=== PATIENT | female | born 1985 | race Two or more races ===

== ENCOUNTER 2016-11-10 15:24 | Inpatient (IN) | payer OTHER ==
[2016-11-10] MEDS ORDERED: HYDROmorphONE/DILAUDID 1 MG/ML SYR IVP ONE ×2 (15:28→17:00)
[2016-11-10] MEDS ORDERED: NS 1,000 ML IV ONE (15:28)
--- NOTE | 2016-11-10 15:33 | EDPHY ---
H & P HPI/ROS: CHIEF COMPLAINT: The fall down the trail HISTORY OF PRESENT ILLNESS: The patient is a 31-year-old female with no significant past medical history. She was hiking today slipped and fell backwards down a steep 10 foot incline. She has pain to her left clavicle and side of her head. She complains of mild headache. She denies shortness of breath. She denies abdominal pain. She denies loss of consciousness. She denies pelvic pain. She has been able to ambulate. REVIEW OF SYSTEMS: Constitutional: denies: chills, fever, recent illness, recent injury EENTM: denies: blurred vision, double vision, nose congestion Respiratory: denies: cough, shortness of breath Cardiac: denies: chest pain, irregular heart rate, lightheadedness, palpitations Gastrointestinal/Abdominal: denies: abdominal pain, diarrhea, nausea, vomiting, blood streaked stools Genitourinary: denies: dysuria, frequency, hematuria, pain Musculoskeletal: See HPI Skin: denies: lesions, rash, jaundice, bruising Neurological: denies: headache, numbness, paresthesia, tingling, dizziness, weakness Hematologic/Lymphatic: denies: blood clots, easy bleeding, easy bruising Immunologic/allergic: denies: HIV/AIDS, transplant Vital signs reviewed normal Patient is alert not anxious or lethargic and in no distress c-collar in place, cervical collar cleared by me on arrival HEAD: Abrasions to left side of face no raccoon eyes, no Freitas sign. NECK: is nontender and has painless range of motion, trachea is midline, NEXUS criteria negative (no midline tenderness no distracting injury no altered mental status no recent alcohol and no focal neuro deficits EYES: pupils equal round reactive to light and accommodating, extraocular muscles are intact no palsy or entrapment, no subconjunctival hemorrhage ENT: Normal external inspection, airway intact, no dental or oral injuries, no clotted nasal blood, no septal hematoma, no hemotympanum CARDIOVASCULAR: heart sounds normal, not tachycardic or bradycardic, Chest is non-tender no rib tenderness no palpable fracture, no crepitus, no subcutaneous emphysema RESPIRATORY: no splinting, no paradoxical movements, gross sounds normal, no wheezes no rales no rhonchi, no respiratory distress ABDOMEN: Abdomen is nontender in all 4 quadrants no guarding no rebound, no distention, no hernias, no masses or bruits. GENITAL/RECTAL: Normal external inspection, no vaginal bleeding. Stable pelvis NEUROLOGIC/PSYCH: Oriented x3, cranial nerves normal as assessed, face symmetrical, sensation normal, motor grossly normal, not perseverating, cranial nerves II through XII intact normal reflexes Rupinder Coma score: 15 SKIN: Abrasions of face and left shoulder no ecchymosis, no lacerations, nondiaphoretic. BACK: No CVA tenderness, no vertebral point tenderness, no muscle spasm normal range of motion EXTREMITIES: Left clavicular and mild right clavicular pain pelvis stable, nontender able to bear weight, no pulse deficit, normal range of motion, normal color and temperature Source: Patient Exam Limitations: No limitations - Medical/Surgical History Hx Asthma: No Hx Chronic Respiratory Disease: No Hx Diabetes: No Hx Cardiac Disease: No Hx Renal Disease: No Hx Cirrhosis: No Hx Alcoholism: No - Family History Significant Family History: No pertinent family hx - Social History Smoking Status: Never smoked Alcohol Use: Sober Drug Use: None Constitutional: Initial Vital Signs Temperature (C) 36.9 C 11/10/16 15:36 Heart Rate 82 11/10/16 15:36 Respiratory Rate 18 11/10/16 15:36 Blood Pressure 136/74 H 11/10/16 15:36 O2 Sat (%) 99 11/10/16 15:36 O2 Delivery Mode Room Air Allergies/Adverse Reactions: No Known Allergies Allergy (Unverified 11/10/16 15:35) Home Medications: Medication Instructions Recorded Desvenlafaxine Succinate [Pristiq 100 mg PO DAILY 11/10/16 ER] Levothyroxine [Synthroid 200 mcg 200 mcg PO DAILY06 11/10/16 (*)] Qlaira (Estradiol Valerate & 1 tab PO DAILY 11/10/16 Dienogest) 26/2 traZODone [traZODONE 50MG (*)] 25 mg PO HS 11/10/16 Medical Decision Making - Diagnostics Imaging Results: Imaging Impressions Cervical Spine CT 11/10/16 15:29 Impression: Mildly comminuted nondisplaced fracture of the right occipital condyle. It is in the region where the transverse ligament inserts and therefore could be unstable. CT Head (Without Contrast) Indication: Trauma. Fall. Technique: 5 mm images were obtained of the head without contrast. Multiplanar reformation was performed. Dose reduction techniques were utilized. Findings: No evidence for intracranial mass, hemorrhage, or infarct. The ventricles, sulci, and cisterns are within normal limits for the patient's age. No evidence for an extraaxial fluid collection. No evidence for skull fracture. Paranasal sinuses are clear. Soft tissue swelling left frontal scalp. Impression: Soft tissue swelling left frontal scalp. No evidence for skull fracture. No evidence for intracranial hemorrhage. Results discussed with Dr. Alex Segura at 1630 hours 10 November 2016. Chest X-Ray 11/10/16 15:29 Impression: 1. Displaced left clavicular fracture. 2. No pneumothorax. Clavicle X-Ray 11/10/16 15:29 Impression: Displaced oblique slightly comminuted left mid clavicular fracture. No apposition. Head CT 11/10/16 15:29 Impression: Mildly comminuted nondisplaced fracture of the right occipital condyle. It is in the region where the transverse ligament inserts and therefore could be unstable. CT Head (Without Contrast) Indication: Trauma. Fall. Technique: 5 mm images were obtained of the head without contrast. Multiplanar reformation was performed. Dose reduction techniques were utilized. Findings: No evidence for intracranial mass, hemorrhage, or infarct. The ventricles, sulci, and cisterns are within normal limits for the patient's age. No evidence for an extraaxial fluid collection. No evidence for skull fracture. Paranasal sinuses are clear. Soft tissue swelling left frontal scalp. Impression: Soft tissue swelling left frontal scalp. No evidence for skull fracture. No evidence for intracranial hemorrhage. Results discussed with Dr. Alex Segura at 1630 hours 10 November 2016. Imaging: Discussed imaging studies w/ dental office coordinator Radiologist Procedures: Procedure: Trauma ultrasound. Limited echocardiogram for pericardial effusion. Limited bedside ultrasound was performed and interpreted by myself for the indication of: thoracoabdominal trauma utilizing the thoracoabdominal emergency ultrasound protocol. Limited transthoracic echocardiogram: The pericardium was visualized and found to be negative for pericardial fluid. The study was negative for pericardial effusion. Limited abdominal ultrasound for blunt abdominal trauma. 1) The right upper quadrant was visualized and was found to be negative for intraperitoneal fluid. 2) The left upper quadrant was visualized and found to be negative for intraperitoneal fluid. The study was felt to be negative for free intraperitoneal fluid. Limited pelvic ultrasound was conducted for abdominal trauma. The bladder was visualized and did not reveal an anechoic area outside of the adjacent urinary bladder. The study was felt to be negative for free intraperitoneal fluid. ED Course/Re-evaluation: Patient came in as a limited trauma activation but was immediately down graded because of her stable vital signs, normal mental status and no obvious series injury. 4:50 p.m. the patient has bilateral clavicle fractures. I examined her skin more closely. It is not an open fracture. She has abrasions but no penetration or laceration. I placed her back in a cervical collar because of her right occipital condyle fracture. I will discuss with Neurosurgery. 5:10 p.m. I discussed the case with Dr. Oviedo who is on-call for Neurosurgery. She recommends a bryon or somi brace from [facility] including a forehead strep. 5:15 p.m. I discussed the case with Dr. Roxanne Irvin. He states that the left clavicle likely will need surgery but he would do it after the swelling has gone down a week and likely after she is out of her neck brace after several weeks. Until that time she will wear bilateral slings. She may remove the right sling for activities of daily living. 5:15 p.m. I discussed the case with is doctor Felipe Brennan is. We will attempt to discharge from the ER if the patient can tolerate the pain and functionally take care of herself. 6:[address] Brenna Oviedo is here evaluating the patient. She will need to be in the brace for 8-12 weeks. 7:[address] Brenna Oviedo recommends admitting the patient getting MRI. Discussed the case with Dr. Brennan for admission. Differential Diagnosis: Partial list of the Differential diagnosis considered include but were not limited to; head injury, neck injury, clavicle fracture, pneumothorax and although unlikely based on the history and physical exam, I also considered abdominal injury, pelvic injury, extremity injury. - Data Points Laboratory Results: Laboratory Results 11/10/16 17:10 11/10/16 17:10 11/10/16 11/10/16 17:10 17:10 WBC 10.88 10^3/uL H 10^3/uL (3.80-9.50) RBC 4.30 10^6/uL 10^6/uL (4.18-5.33) Hgb 12.5 g/dL L g/dL (12.6-16.3) Hct 37.2 % L % (38.0-47.0) MCV 86.5 fL fL (81.5-99.8) MCH 29.1 pg pg (27.9-34.1) MCHC 33.6 g/dL g/dL (32.4-36.7) RDW 12.7 % % (11.5-15.2) Plt Count 238 10^3/uL 10^3/uL (150-400) MPV 10.7 fL fL (8.7-11.7) Neut % (Auto) 83.9 % H % (39.3-74.2) Lymph % (Auto) 10.4 % L % (15.0-45.0) [place] % (Auto) 4.8 % % (4.5-13.0) Eos % (Auto) 0.0 % L % (0.6-7.6) Baso % (Auto) 0.3 % % (0.3-1.7) Nucleat RBC Rel Count 0.0 % % (0.0-0.2) Absolute Neuts (auto) 9.14 10^3/uL H 10^3/uL (1.70-6.50) Absolute Lymphs (auto) 1.13 10^3/uL 10^3/uL (1.00-3.00) Absolute Monos (auto) 0.52 10^3/uL 10^3/uL (0.30-0.80) Absolute Eos (auto) 0.00 10^3/uL L 10^3/uL (0.03-0.40) Absolute Basos (auto) 0.03 10^3/uL 10^3/uL (0.02-0.10) Absolute Nucleated RBC 0.00 10^3/uL 10^3/uL (0-0.01) Immature Gran % 0.6 % % (0.0-1.1) Immature Gran # 0.06 10^3/uL 10^3/uL (0.00-0.10) Sodium 139 mEq/L mEq/L (134-144) Potassium 4.5 mEq/L mEq/L (3.5-5.2) Chloride 111 mEq/L H mEq/L (97-110) Carbon Dioxide 18 mEq/l L mEq/l (22-31) Anion Gap 10 mEq/L mEq/L (8-16) BUN 14 mg/dL mg/dL (7-23) Creatinine 0.6 mg/dL mg/dL (0.6-1.0) Estimated GFR > 60 Glucose 91 mg/dL mg/dL (70-100) Calcium 9.3 mg/dL mg/dL (8.5-10.4) Medications Given: Discontinued Medications Hydromorphone HCl (Dilaudid) 0.5 mg IVP EDNOW ONE Stop: 11/10/16 15:29 Last Admin: 11/10/16 15:46 Dose: 0.5 mg Hydromorphone HCl (Dilaudid) 0.5 mg IVP EDNOW ONE Stop: 11/10/16 17:01 Last Admin: 11/10/16 17:03 Dose: 0.5 mg Sodium Chloride (Ns) 1,000 mls @ 0 mls/hr IV ONCE ONE; Wide Open PRN Reason: Protocol Stop: 11/10/16 15:29 Last Admin: 11/10/16 15:47 Dose: 1,000 mls Oxycodone/Acetaminophen (Percocet 5/325) 1 tab PO EDNOW ONE Stop: 11/10/16 18:45 Last Admin: 11/10/16 19:07 Dose: 1 tab Departure - Departure Disposition: [facility] Acute Clinical Impression: Fracture of clavicle, left, closed Qualifiers: Encounter type: initial encounter Clavicle location: shaft Fracture alignment: displaced Qualified Code(s): S42.022A - Displaced fracture of shaft of left clavicle, initial encounter for closed fracture Right clavicle fracture Qualifiers: Encounter type: initial encounter Clavicle location: shaft Fracture type: closed Fracture alignment: displaced Qualified Code(s): S42.021A - Displaced fracture of shaft of right clavicle, initial encounter for closed fracture Unspecified occipital condyle fracture, initial encounter for closed fracture Qualifiers: Encounter type: initial encounter Laterality: right Qualified Code(s): S02.113A - Unspecified occipital condyle fracture, initial encounter for closed fracture Condition: Fair
[2016-11-10] MEDS ORDERED: HYDROmorphONE/DILAUDID 1 MG/ML SYR ONE (16:59)
[2016-11-10 17:41] LABS: % IMMATURE GRANULYOCYTES 0.6 % (0.0-1.1); ABSOLUTE IMMATURE GRANULOCYTES 0.06 10^3/uL (0.00-0.10); ADD DIFF? NO; ADD MORPH? NO; ADD SCAN? NO; ATYPICAL LYMPHOCYTE FLAG 10 (0-99); FRAGMENT RBC FLAG 0 (0-99); HEMATOCRIT 37.2 % (38.0-47.0); HEMOGLOBIN 12.5 g/dL (12.6-16.3); LEFT SHIFT FLG 30 (0-99); LIPEMIA HEMOLYSIS FLAG 80 (0-99); MEAN CELL HEMOGLOBIN 29.1 pg (27.9-34.1); MEAN CELL HEMOGLOBIN CONCENTR. 33.6 g/dL (32.4-36.7); MEAN CELL VOLUME 86.5 fL (81.5-99.8); MEAN PLATELET VOLUME 10.7 fL (8.7-11.7); PLATELET CLUMPS FLAG 0 (0-99); PLATELET COUNT 238 10^3/uL (150-400); RED CELL DISTRIBUTION WIDTH 12.7 % (11.5-15.2)
[2016-11-10 17:50] LABS: ANION GAP 10 mEq/L (8-16); CALCIUM 9.3 mg/dL (8.5-10.4); CARBON DIOXIDE 18 mEq/l (22-31); CHLORIDE 111 mEq/L (97-110); CREATININE 0.6 mg/dL (0.6-1.0); GLOMERULAR FILTRATION RATE > 60; GLUCOSE 91 mg/dL (70-100); POTASSIUM 4.5 mEq/L (3.5-5.2); SODIUM 139 mEq/L (134-144)
[2016-11-10] MEDS ORDERED: OXYCODONE/APAP 5/325 TAB PO ONE (18:44)
--- NOTE | 2016-11-10 20:14 | GCON ---
[f rep st] CONSULTATION NEUROSURGICAL CONSULTATION DATE OF CONSULTATION: 11/10/2016 LOCATION: Emergency department. CHIEF COMPLAINT: Fall history. HISTORY OF PRESENT ILLNESS: This is a 31-year-old female, who was out hiking, slipped and fell appr oximately 10 feet, fracturing her right occipital condyle and bilateral clavicle. She states she st ruck her head, but did not lose consciousness. She had a mild headache, this has resolved with some morphine. She mostly complains of clavicle pain. She denies any neck pain. She denies any numbne ss, tingling, or weakness. She denies any nausea, vomiting, or vision changes. She denies any othe r complaints. PAST MEDICAL HISTORY: She denies. PAST SURGICAL HISTORY: For nephrolithiasis. SOCIAL HISTORY: She does not smoke. She does not use alcohol. She does not use illicit drugs. FAMILY HISTORY: No family history of osteoporosis or hypercoagulable states or other contributory f actors. ALLERGIES: She has no known drug allergies. HOME MEDICATIONS: Include Prozac and levothyroxine. REVIEW OF SYSTEMS: A complete 10-system review of systems was performed by myself, was negative exc ept as stated above. PHYSICAL EXAMINATION: VITAL SIGNS: Blood pressure is 144/78, heart rate is 81, respiratory rate 16 , saturating 97% on room air. LABORATORY DATA: White blood cell count 10.88, hemoglobin 12.5, adrian tocrit 37.2, platelets are 238. Sodium is 139, potassium 4.5, chloride 111, CO2 of 18, BUN 14, crea tinine 0.6, glucose 91. CT of the head reveals a mildly comminuted nondisplaced fracture of the rig ht occipital condyle in the medial aspect where the transverse ligament attaches, no other evidence for fracture, reversal of the normal lordotic curvature, no significant spondylolisthesis, no eviden ce for prevertebral soft tissue swelling. No definite spinal canal or neuroforaminal encroachment. There is no evidence for intracranial mass, hemorrhage, or infarct. Ventricles and sulci and ciste rns are within normal limits for patient's age. No evidence for extra-axial fluid collection. No e vidence for skull fracture. The paranasal sinuses are clear. Soft tissue swelling in the left fron jenny scalp. NEUROLOGIC: She is alert and oriented x3. Pupils are equal, round, reactive to light a nd accommodation. External ocular muscles are intact. There is no facial asymmetry or tongue devia tion. Sensation is intact V1, V2, V3 distributions of V cranial nerve bilaterally. Strength is 5/5 to right deltoid, somewhat pain limited secondary to clavicle fracture. Biceps, triceps, wrist fle xors, wrist extensors bilaterally, left deltoid, she is unable to participate secondary to pain, 5/5 to bilateral iliopsoas, quadriceps, hamstrings, dorsiflexors, plantar flexors, EHLs. DTRs are +2/4 biceps, brachioradialis, patellar, and Achilles. There is no Hebert's. There is no clonus. Sens ation is intact to all dermatomal distributions in the upper and lower extremities bilaterally. IMPRESSION AND PLAN: This is a 31-year-old female, status post a fall approximately 10 feet with a right occipital condyle fracture. It is nondisplaced and mildly comminuted at the region of the alar ligament attachment and could represent some instability. I will get an MRI of the cer vical spine. At this point in time, she is in a hard cervical collar. I have asked Mine rva brace. I will make further recommendations for bracing versus halo after the MRI is complete. She is going to be admitted for pain control. Please call with any changes in neurologic status. /[id number]/MODL
[2016-11-10] MEDS ORDERED: NALOXONE HCL 0.4 MG/ML INJ IVP PRN (20:35)
[2016-11-10] MEDS ORDERED: LORazepam 2 MG/ML INJ IVP PRN (20:35)
--- NOTE | 2016-11-10 20:43 | PDGENHP ---
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 Her limited activation revealed right a septal condyle fracture minimally displaced and bilateral clavicle fractures closed left worse than right. The patient denies any neurologic symptoms following her fall including but not limited to incontinence, paresthesias or loss of consciousness. She has been seen by Dr. Brenna Oviedo from Neurosurgery and consultation with Dr. Irvin from orthopedic surgery. Dr. Oviedo would like an MRI to better define her fractures to see whether a Ange brace or halo will be required for stabilization of her fracture. Dr. Irvin by report would like to wait until after her brace is off or at least 1 week until swelling goes down prior to surgery. She needs to be admitted for pain control and coordination of care. She has no family support in this area as of yet. History Information - Allergies/Home Medication List Allergies/Adverse Reactions: No Known Allergies Allergy (Unverified 11/10/16 15:35) Home Medications: Desvenlafaxine Succinate [Pristiq ER] 100 mg PO DAILY 11/10/16 [Last Taken 11/10] Levothyroxine [Synthroid 200 mcg (*)] 200 mcg PO DAILY06 11/10/16 [Last Taken ] Qlaira (Estradiol Valerate & Dienogest) 26/2 1 tab PO DAILY 11/10/16 [Last Taken 11/09/16] traZODone [traZODONE 50MG (*)] 25 mg PO HS 11/10/16 [Last Taken 11/09/16] I have personally reviewed and updated: family history, medical history, social history, surgical history - Past Medical History Additional medical history: Depression, hypothyroidism, nephrolithiasis - Surgical History Additional surgical history: For nephrolithiasis - Family History Positive for: non-pertinent Additional family history: Father has - Social History Smoking Status: Never smoked Alcohol Use: Sober Drug Use: None Review of Systems ROS: 10pt was reviewed & negative except for what was stated in HPI & below Constitutional: Denies: malaise EENMT: Denies: blurred vision Respiratory: Reports: no symptoms. Denies: shortness of breath Gastrointestinal: Reports: no symptoms Muscolosketal: Reports: joint pain, muscle pain Neurological: Reports: depressed. Denies: seizure, tingling, weakness Hematologic/Lymphatic: Reports: no symptoms Physical Exam Temp Pulse Resp BP Pulse Ox 36.9 C 76 16 122/95 H 95 11/10/16 15:36 11/10/16 19:28 11/10/16 19:28 11/10/16 19:28 11/10/16 19:28 Constitutional: no apparent distress Eyes: PERRL, anicteric sclera Ears, Nose, Mouth, Throat: ears appear normal Cardiovascular: regular rate and rhythym, no murmur, rub, or gallop, No JVD Peripheral Pulses: 2+: carotid (R), carotid (L), femoral (R), femoral (L), dorsalis-pedis (R), dorsalis-pedis (L) Respiratory: no respiratory distress, no rales or rhonchi, clear to auscultation Gastrointestinal: soft, non-tender abdomen, No hepatosplenomegally, No guarding , No rebound, No distension Genitourinary: no bladder fullness Skin: warm, abrasion (Left facial contusion, right palm abrasions, left in her knee and ankle abrasions) Neurologic: AAOx3, sensation intact bilaterally, pronator drift, CN II-XII Intact, No weakness, No numbness, No facial droop Psychiatric: interacting appropriately Lymph, Heme, Immunologic: ecchymoses (Left face), No petechiae Lab Data & Imaging Review 11/10/16 17:10 11/10/16 17:10 WBC 10.88 10^3/uL (3.80-9.50) H 11/10/16 17:10 RBC 4.30 10^6/uL (4.18-5.33) 11/10/16 17:10 Hgb 12.5 g/dL (12.6-16.3) L 11/10/16 17:10 Hct 37.2 % (38.0-47.0) L 11/10/16 17:10 MCV 86.5 fL (81.5-99.8) 11/10/16 17:10 MCH 29.1 pg (27.9-34.1) 11/10/16 17:10 MCHC 33.6 g/dL (32.4-36.7) 11/10/16 17:10 RDW 12.7 % (11.5-15.2) 11/10/16 17:10 Plt Count 238 10^3/uL (150-400) 11/10/16 17:10 MPV 10.7 fL (8.7-11.7) 11/10/16 17:10 Neut % (Auto) 83.9 % (39.3-74.2) H 11/10/16 17:10 Lymph % (Auto) 10.4 % (15.0-45.0) L 11/10/16 17:10 [place] % (Auto) 4.8 % (4.5-13.0) 11/10/16 17:10 Eos % (Auto) 0.0 % (0.6-7.6) L 11/10/16 17:10 Baso % (Auto) 0.3 % (0.3-1.7) 11/10/16 17:10 Nucleat RBC Rel Count 0.0 % (0.0-0.2) 11/10/16 17:10 Absolute Neuts (auto) 9.14 10^3/uL (1.70-6.50) H 11/10/16 17:10 Absolute Lymphs (auto) 1.13 10^3/uL (1.00-3.00) 11/10/16 17:10 Absolute Monos (auto) 0.52 10^3/uL (0.30-0.80) 11/10/16 17:10 Absolute Eos (auto) 0.00 10^3/uL (0.03-0.40) L 11/10/16 17:10 Absolute Basos (auto) 0.03 10^3/uL (0.02-0.10) 11/10/16 17:10 Absolute Nucleated RBC 0.00 10^3/uL (0-0.01) 11/10/16 17:10 Immature Gran % 0.6 % (0.0-1.1) 11/10/16 17:10 Immature Gran # 0.06 10^3/uL (0.00-0.10) 11/10/16 17:10 Sodium 139 mEq/L (134-144) 11/10/16 17:10 Potassium 4.5 mEq/L (3.5-5.2) 11/10/16 17:10 Chloride 111 mEq/L (97-110) H 11/10/16 17:10 Carbon Dioxide 18 mEq/l (22-31) L 11/10/16 17:10 Anion Gap 10 mEq/L (8-16) 11/10/16 17:10 BUN 14 mg/dL (7-23) 11/10/16 17:10 Creatinine 0.6 mg/dL (0.6-1.0) 11/10/16 17:10 Estimated GFR > 60 11/10/16 17:10 Glucose 91 mg/dL (70-100) 11/10/16 17:10 Calcium 9.3 mg/dL (8.5-10.4) 11/10/16 17:10 Imaging Review: Imaging Impressions Cervical Spine CT 11/10/16 15:29 Impression: Mildly comminuted nondisplaced fracture of the right occipital condyle. It is in the region where the transverse ligament inserts and therefore could be unstable. CT Head (Without Contrast) Indication: Trauma. Fall. Technique: 5 mm images were obtained of the head without contrast. Multiplanar reformation was performed. Dose reduction techniques were utilized. Findings: No evidence for intracranial mass, hemorrhage, or infarct. The ventricles, sulci, and cisterns are within normal limits for the patient's age. No evidence for an extraaxial fluid collection. No evidence for skull fracture. Paranasal sinuses are clear. Soft tissue swelling left frontal scalp. Impression: Soft tissue swelling left frontal scalp. No evidence for skull fracture. No evidence for intracranial hemorrhage. Results discussed with Dr. Alex Segura at 1630 hours 10 November 2016. Chest X-Ray 11/10/16 15:29 Impression: 1. Displaced left clavicular fracture. 2. No pneumothorax. Clavicle X-Ray 11/10/16 15:29 Impression: Displaced oblique slightly comminuted left mid clavicular fracture. No apposition. Head CT 11/10/16 15:29 Impression: Mildly comminuted nondisplaced fracture of the right occipital condyle. It is in the region where the transverse ligament inserts and therefore could be unstable. CT Head (Without Contrast) Indication: Trauma. Fall. Technique: 5 mm images were obtained of the head without contrast. Multiplanar reformation was performed. Dose reduction techniques were utilized. Findings: No evidence for intracranial mass, hemorrhage, or infarct. The ventricles, sulci, and cisterns are within normal limits for the patient's age. No evidence for an extraaxial fluid collection. No evidence for skull fracture. Paranasal sinuses are clear. Soft tissue swelling left frontal scalp. Impression: Soft tissue swelling left frontal scalp. No evidence for skull fracture. No evidence for intracranial hemorrhage. Results discussed with Dr. Alex Segura at 1630 hours 10 November 2016. Assessment & Plan Assessment: Fracture of clavicle, left, closed (Acute) Right clavicle fracture (Acute) Unspecified occipital condyle fracture, initial encounter for closed fracture ( Acute) Plan: Sling for comfort for left clavicular fracture Spine precautions C-spine hard collar until Ange brace or halo recommended by Neurosurgery MRI to better delineate the nature of her right occipital condyle fracture Bed rest head of bed up to 30 degrees only Pain control Regular diet PT OT
[2016-11-10] MEDS: [UNRECOGNIZED DRUG - OTHER] PO SCH (22:57)
[2016-11-10] MEDS: ESTRADIOL VALERATE PO SCH (22:57)
[2016-11-10] MEDS: traZODone 50 MG TAB PO SCH (22:58)
[2016-11-10] MEDS: HYDROCODONE/APAP 5/325 TAB PO PRN (23:01)
[2016-11-11] MEDS: LEVOTHYROXINE 200 MCG TAB PO SCH (04:37)
[2016-11-11] MEDS: HYDROCODONE/APAP 5/325 TAB PO PRN ×4 (04:37→20:44)
[2016-11-11] MEDS: ENOXAPARIN 40 MG/0.4 ML SYR SC SCH (10:11)
--- NOTE | 2016-11-11 10:20 | TRAUMAPN ---
Assessment/Plan: 31 yo s/p fall with right occipital condyle fx - Dr Oviedo is seeing. MRI ordered to evaluate if halo will be needed. Ange until then Bilateral clavicle fx. Dr. Irvin was consulted last evening. Awaiting recs From [place] and studying here. Awaiting recommendations to see realistic discharge S: Pain controlled Objective: Vital Signs Temp Pulse Resp BP Pulse Ox 37 C 82 16 123/81 H 96 11/11/16 08:00 11/11/16 08:00 11/11/16 08:00 11/11/16 08:00 11/11/16 08:00 11/10/16 11/11/16 11/12/16 05:59 05:59 05:59 Intake Total 100 Balance 100 - C-Spine Clearance Cervical Spine Cleared: No Physical Exam - Physical Exam General Appearance: WD/WN, alert, no apparent distress EENT: PERRL/EOMI, normal ENT inspection Neck: other (in brace) Respiratory: chest non-tender, lungs clear, normal breath sounds Cardiac/Chest: regular rate, rhythm Abdomen: normal bowel sounds, non-tender, soft Extremities: other (limited movement L arm)
[2016-11-11] MEDS: ONDANSETRON 4 MG/2 ML VIAL IVP PRN ×3 (12:49→20:52)
[2016-11-11] MEDS: Desvenlafaxine Succinate [Pristiq] 100 MG PO SCH (14:20)
--- NOTE | 2016-11-11 15:37 | NEUSURGPN ---
Assessment/Plan: A/P: 31 yo female sp hiking fall with occipital condyle fracture, clavicle fracture. -Awaiting results of cervical MRI to see if Halo is needed, Ange brace until then -Ok to be up with assistance in brace -Wear Ange brace at all times -Optimize pain management -PT/OT Discussed with Dr. Oviedo Call with any new or worsening symptoms S: Patient states she has discomfort from the brace but otherwise doing ok. Left clavicle hurts the most. She deneis any numbness, tingling, pain or weakness in her arms or legs. O: VSS, NAD Ange brace on and fitted BUE/BLE 5/5= (BUE bi/tri/delt limited by bilateral clavicle fx) Sensation intact to lt touch - Physician Discussed Patient with : [facility] Physical Exam - Vitals, I&O, Labs I and O 11/10/16 11/11/16 11/12/16 05:59 05:59 05:59 Intake Total 100 Balance 100 Weight 98.5 kg Intake: Oral (ml) 100 Vital Signs Temp Pulse Resp BP Pulse Ox 37 C 82 16 137/79 H 96 11/11/16 08:00 11/11/16 08:00 11/11/16 08:00 11/11/16 12:40 11/11/16 08:00 ICD10 Worksheet Patient Problems: Problems Problem Status Onset Fracture of clavicle, left, closed Acute Right clavicle fracture Acute Unspecified occipital condyle fracture, initial encounter for closed fracture Acute
[2016-11-11] MEDS: IBUPROFEN 600 MG TAB PO PRN (20:45)
[2016-11-11] MEDS: traZODone 50 MG TAB PO SCH (20:45)
[2016-11-11] MEDS: ESTRADIOL VALERATE PO SCH (20:47)
[2016-11-11] MEDS: [UNRECOGNIZED DRUG - OTHER] PO SCH (20:47)
[2016-11-12] MEDS: LEVOTHYROXINE 200 MCG TAB PO SCH (05:56)
[2016-11-12] MEDS: HYDROCODONE/APAP 5/325 TAB PO PRN ×4 (05:56→21:34)
--- NOTE | 2016-11-12 07:54 | NEUSURGPN ---
Assessment/Plan: A/P: 31 yo female sp hiking fall with occipital condyle fracture, clavicle fracture. -MRI cervical reviewed by Dr. Oviedo- Ok for Ange brace only, no Halo -May shower in Karlee Collar -Ok to be up with assistance in brace -Wear Ange brace at all times except shower- can wear Karlee -Dispo- Per primary team but patient has friends coming to town tomorrow to help as she lives home alone and does not want to go home alone. Will follow up with Dr. Oviedo in 4 weeks with Cervical x-rays -Optimize pain management -PT/OT Discussed with Dr. Oviedo Call with any new or worsening symptoms S: Patient states she has some rubbing of collar on chin that is painful. Denies any numbness, tingling, pain in the arms or legs. O: VSS, NAD Ange brace on and fitted BUE/BLE 5/5= (BUE bi/tri/delt limited by bilateral clavicle fx) Sensation intact to lt touch - Physician Discussed Patient with : [facility] Physical Exam - Vitals, I&O, Labs I and O 11/11/16 11/12/16 11/13/16 05:59 05:59 05:59 Intake Total 100 500 Balance 100 500 Weight 98.5 kg Intake: Oral (ml) 100 500 Other: Number of Voids Toilet 1 Vital Signs Temp Pulse Resp BP Pulse Ox 36.7 C 63 16 108/60 95 11/11/16 23:37 11/11/16 23:37 11/11/16 23:37 11/11/16 23:37 11/11/16 23:37 ICD10 Worksheet Patient Problems: Problems Problem Status Onset Fracture of clavicle, left, closed Acute Right clavicle fracture Acute Unspecified occipital condyle fracture, initial encounter for closed fracture Acute
[2016-11-12] MEDS: Desvenlafaxine Succinate [Pristiq] 100 MG PO SCH ×2 (10:06→10:16)
[2016-11-12] MEDS: ENOXAPARIN 40 MG/0.4 ML SYR SC SCH (10:07)
[2016-11-12] MEDS: ONDANSETRON 4 MG/2 ML VIAL IVP PRN (10:11)
[2016-11-12] MEDS: ONDANSETRON DISINTEGRATING 4 MG TAB PO PRN ×2 (14:16→21:34)
[2016-11-12] MEDS ORDERED: MAGNESIUM HYDROXIDE 30 ML UDCUP PO PRN (14:25)
[2016-11-12] MEDS ORDERED: LACTULOSE 20 GM/30 ML UDCUP PO PRN (14:25)
[2016-11-12] MEDS ORDERED: POLYETHYLENE GLYCOL 3350 17 GM PKT PO PRN (14:25)
[2016-11-12] MEDS ORDERED: BISACODYL 10 MG SUPP PR PRN (14:25)
[2016-11-12] MEDS: SENNOSIDES/DOCUSATE SODIUM TAB PO SCH ×2 (15:11→21:34)
--- NOTE | 2016-11-12 17:05 | TRAUMAPN ---
Objective: Vital Signs Temp Pulse Resp BP Pulse Ox 36.7 C 66 18 141/95 H 94 11/12/16 14:55 11/12/16 14:55 11/12/16 14:55 11/12/16 14:55 11/12/16 14:55 11/11/16 11/12/16 11/13/16 05:59 05:59 05:59 Intake Total 100 500 Balance 100 500
--- NOTE | 2016-11-12 17:13 | TRAUMAPN ---
Assessment/Plan: PAD#2 11/12/2016 Assessment: On tertiary survey she now complains of left humeral pain. C/o nausea In Ange collar/support. Awaiting instruction regarding removal/Phili collar placement for shower. Appreciate Neurosurgery note. Awaiting Dr. Irvin's evaluation regarding left clavicle (and possibly left humerus) Letter written to help expedite visa application for mother Facial abrasions are stable Moving bowels Plan: review/adjust pain meds Left humeral xray Dr. Irvin's evaluation Possible discharge in AM Lactose free diet Subjective: I'm lactose intolerant and my left upper arm hurts Objective: Vital Signs Temp Pulse Resp BP Pulse Ox 36.7 C 66 18 141/95 H 94 11/12/16 14:55 11/12/16 14:55 11/12/16 14:55 11/12/16 14:55 11/12/16 14:55 11/11/16 11/12/16 11/13/16 05:59 05:59 05:59 Intake Total 100 500 Balance 100 500 - C-Spine Clearance Cervical Spine Cleared: No Physical Exam - Physical Exam General Appearance: WD/WN, alert, mild distress EENT: PERRL/EOMI, normal ENT inspection (normal dental occlusion) Neck: other (In ange collar/brace) Respiratory: chest non-tender, lungs clear, normal breath sounds Cardiac/Chest: regular rate, rhythm Abdomen: normal bowel sounds, non-tender, soft Pelvic Exam: deferred Rectal: deferred Back: Normal inspection Skin: normal color, warm/dry Lymphatic: no adenopathy Extremities: other (left arm in sling) Neuro/Psych: no motor/sensory deficits, alert, normal mood/affect, oriented x 3 Time Spent w/Patient (minutes): 25
[2016-11-12] MEDS: LACTASE 3,000 UNIT TAB PO SCH (18:26)
--- NOTE | 2016-11-12 18:42 | SOAPPROG ---
SOAP Progress Note Assessment/Plan: Assessment: Bilateral clavicle fx. Nondisplaced Right. Displaced Left Plan: 11/12/16 18:40 Nonsurgical mgmt. fu in 11-12 for repeat xrays at my office. Subjective: Fall. painful shoulder and neck. Mom on Facetime with her in [place]. Objective: Vital Signs Temp Pulse Resp BP Pulse Ox 36.7 C 66 18 141/95 H 94 11/12/16 14:55 11/12/16 14:55 11/12/16 14:55 11/12/16 14:55 11/12/16 14:55 11/11/16 11/12/16 11/13/16 05:59 05:59 05:59 Intake Total 100 500 Balance 100 500 tender bilateral clavicle. skin healthy Jewitt brace in place. AROM 170 R shoulder AROM L shoulder to 100 with pain in shoulder and humerus. No humeral crepitus. Xrays reviewed of chest and clavicle ICD10 Worksheet Patient Problems: Problems Problem Status Onset Fracture of clavicle, left, closed Acute Right clavicle fracture Acute Unspecified occipital condyle fracture, initial encounter for closed fracture Acute
[2016-11-12] MEDS: [UNRECOGNIZED DRUG - OTHER] PO SCH (21:33)
[2016-11-12] MEDS: ESTRADIOL VALERATE PO SCH (21:33)
[2016-11-12] MEDS: traZODone 50 MG TAB PO SCH (21:35)
--- NOTE | 2016-11-12 22:39 | PDCONSULT ---
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 Mei Irvin by Nir Herman PA-C CC: Fall down trail Patient is a pleasant 31 year old female from [place], she reports that she was hiking in [facility] on 11/10/16 when she slipped and fell backwards down the trail , she thinks it was approximately 10 feet or so, she doesn't recall exactly how far she fell. She denies losing any consciousness, but did hit her head. Patient reports most of her pain is in the left shoulder region with some pain in her right. Patient reports her mother will arrive from [place] this saturday. Denies numbness/tingling, denies cp/sob/difficuty breathing, denies n/v/d/c. REVIEW OF SYSTEMS: Constitutional: denies: chills, fever, recent illness, recent injury EENTM: denies: blurred vision, double vision, nose congestion Respiratory: denies: cough, shortness of breath Cardiac: denies: chest pain, irregular heart rate, lightheadedness, palpitations Gastrointestinal/Abdominal: denies: abdominal pain, diarrhea, nausea, vomiting, blood streaked stools Genitourinary: denies: dysuria, frequency, hematuria, pain Musculoskeletal: See HPI Skin: denies: lesions, rash, jaundice, bruising Neurological: denies: headache, numbness, paresthesia, tingling, dizziness, weakness Hematologic/Lymphatic: denies: blood clots, easy bleeding, easy bruising Immunologic/allergic: denies: HIV/AIDS, transplant - Medical/Surgical History Hx Asthma: No Hx Chronic Respiratory Disease: No Hx Diabetes: No Hx Cardiac Disease: No Hx Renal Disease: No Hx Cirrhosis: No Hx Alcoholism: No History of hypothyroidism History of depression History of Bariatric surgery History of choesystecomty Home Medications: Medication Instructions Recorded Desvenlafaxine Succinate [Pristiq 100 mg PO DAILY 11/10/16 ER] Levothyroxine [Synthroid 200 mcg 200 mcg PO DAILY06 11/10/16 (*)] Qlaira (Estradiol Valerate & 1 tab PO DAILY 11/10/16 Dienogest) 26/2 traZODone [traZODONE 50MG (*)] 25 mg PO HS 11/10/16 - Family History Significant Family History: No pertinent family hx - Social History Smoking Status: Never smoked Alcohol Use:<1x/month Drug Use: None Constitutional: Allergies: NKDA Physical Exam Vital signs reviewed normal Labs review normal Patient is alert not anxious or lethargic and in no distress LUE: arm in sling, left clavicle ttp midshaft, no shoulder rom assessed, full elbow/wrist/digit rom, nvid w/ brisk cap refill RUE: minimally ttp midshaft clavicle, full shoulder rom w/ no discomfort, full elbow/wrist/digit rom, nvid w/ brisk cap refill Laboratory Results 11/10/16 17:10 11/10/16 17:10 Imaging Impressions Humerus X-Ray 11/12/16 17:05 Impression: 1. Negative left humerus radiographs. Displaced left clavicle fracture. 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 Mei Irvin or his staff at [facility] in 7-10 days. -no further orthopedic intervention needed at this time. Thank you very much for this consultation. Please feel free to contact us with any questions Chavo Herman PA-C [phone]
[2016-11-13] MEDS: ONDANSETRON DISINTEGRATING 4 MG TAB PO PRN ×3 (06:47→19:53)
[2016-11-13] MEDS: HYDROCODONE/APAP 5/325 TAB PO PRN ×4 (06:47→21:58)
[2016-11-13] MEDS: LEVOTHYROXINE 200 MCG TAB PO SCH (06:48)
--- NOTE | 2016-11-13 07:24 | SOAPPROG ---
SOAP Progress Note Assessment/Plan: A/P: 31 yo female sp hiking fall with right occipital condyle fracture, clavicle fracture. -MRI cervical reviewed by Dr. Oviedo- Ok for Ange brace only, no Halo -May shower in Karlee Collar -Ok to be up with assistance in brace -Wear Ange brace at all times except shower- can wear Karlee -Dispo- Per primary team but patient has friends coming to town tomorrow to help as she lives home alone and does not want to go home alone. Will follow up with Dr. Oviedo in 4 weeks with Cervical x-rays -Optimize pain management -PT/OT Call with any new or worsening symptoms S: Patient states she has some rubbing of collar on chin that is painful. Denies any numbness, tingling, pain in the arms or legs. O: VSS, NAD Left arm in sling for clavicle fx Ange brace on and fitted BUE/BLE 5/5= (BUE bi/tri/delt limited by bilateral clavicle fx) Sensation intact to lt touch 11/13/16 07:23 Subjective: awake, alert, pain controlled, Ange brace is on. Objective: Vital Signs Temp Pulse Resp BP Pulse Ox 36.6 C 60 16 107/69 95 11/13/16 00:00 11/13/16 00:00 11/13/16 00:00 11/13/16 00:00 11/13/16 00:00 11/12/16 11/13/16 11/14/16 05:59 05:59 05:59 Intake Total 500 500 Balance 500 500 ICD10 Worksheet Patient Problems: Problems Problem Status Onset Fracture of clavicle, left, closed Acute Right clavicle fracture Acute Unspecified occipital condyle fracture, initial encounter for closed fracture Acute
[2016-11-13] MEDS: LACTASE 3,000 UNIT TAB PO SCH ×4 (08:57→17:36)
[2016-11-13] MEDS: IBUPROFEN 600 MG TAB PO PRN (08:58)
[2016-11-13] MEDS: Desvenlafaxine Succinate [Pristiq] 100 MG PO SCH (08:59)
[2016-11-13] MEDS: ENOXAPARIN 40 MG/0.4 ML SYR SC SCH (09:00)
[2016-11-13] MEDS: SENNOSIDES/DOCUSATE SODIUM TAB PO SCH ×2 (09:04→22:00)
[2016-11-13] MEDS ORDERED: PROMETHAZINE HCL 25 MG TAB PO PRN (10:39)
[2016-11-13] MEDS ORDERED: PROMETHAZINE HCL 25 MG TAB ONE (10:39)
--- NOTE | 2016-11-13 18:59 | TRAUMAPN ---
Assessment/Plan: 11/13/2016 Assessment: Pain control better. Has successfully learned to transition to Karlee collar for showering Area of pressure on chin from collar has been adjusted Eating well Plan: Support group to arrive tomorrow at 6:30 - plan to consider discharge at that time if appropriate. Subjective: I'm felling better. No stool for two days Objective: Vital Signs Temp Pulse Resp BP Pulse Ox 36.6 C 79 16 133/86 H 92 11/13/16 16:45 11/13/16 16:45 11/13/16 16:45 11/13/16 16:45 11/13/16 16:45 11/12/16 11/13/16 11/14/16 05:59 05:59 05:59 Intake Total 500 500 500 Balance 500 500 500 - C-Spine Clearance Cervical Spine Cleared: No Physical Exam - Physical Exam General Appearance: WD/WN, alert, no apparent distress EENT: PERRL/EOMI Neck: other (In bryon brace) Respiratory: chest non-tender, lungs clear, normal breath sounds Cardiac/Chest: regular rate, rhythm Abdomen: normal bowel sounds, non-tender, soft Pelvic Exam: deferred Rectal: deferred Back: Normal inspection Skin: normal color, warm/dry Extremities: other (No evidence of left humeral fracture on X-Ray) Neuro/Psych: no motor/sensory deficits, alert, normal mood/affect, oriented x 3 Time Spent w/Patient (minutes): 15
[2016-11-13] MEDS: traZODone 50 MG TAB PO SCH (21:57)
[2016-11-13] MEDS: ESTRADIOL VALERATE PO SCH (21:59)
[2016-11-13] MEDS: [UNRECOGNIZED DRUG - OTHER] PO SCH (21:59)
[2016-11-14] MEDS: HYDROCODONE/APAP 5/325 TAB PO PRN ×3 (06:10→13:53)
[2016-11-14] MEDS: LEVOTHYROXINE 200 MCG TAB PO SCH (06:11)
[2016-11-14] MEDS: ONDANSETRON DISINTEGRATING 4 MG TAB PO PRN ×2 (06:11→13:54)
[2016-11-14 07:48] VITALS: O2SAT 96
[2016-11-14] MEDS: SENNOSIDES/DOCUSATE SODIUM TAB PO SCH (08:21)
[2016-11-14] MEDS: ENOXAPARIN 40 MG/0.4 ML SYR SC SCH (08:21)
[2016-11-14] MEDS: Desvenlafaxine Succinate [Pristiq] 100 MG PO SCH (08:25)
[2016-11-14] MEDS: LACTASE 3,000 UNIT TAB PO SCH ×3 (08:29→18:12)
--- NOTE | 2016-11-14 09:46 | SOAPPROG ---
SOAP Progress Note Assessment/Plan: A/P: 31 yo female sp hiking fall with right occipital condyle fracture, clavicle fracture. -MRI cervical reviewed by Dr. Oviedo- Ok for Ange brace only, no Halo -May shower in Karlee Collar -Ok to be up with assistance in brace -Wear Ange brace at all times except shower- can wear Karlee -Dispo- Per primary team but patient has friends coming to town tomorrow to help as she lives home alone and does not want to go home alone. Will follow up with Dr. Oviedo in 4 weeks with Cervical x-rays -pain well controlled -PT/OT We will sign off today. S: tolerating brace better today after Hangar adjusted the chin rest yesterday. O: VSS, NAD Left arm in sling for clavicle fx Ange brace on and fitted BUE/BLE 5/5= (BUE bi/tri/delt limited by bilateral clavicle fx) Sensation intact to lt touch Subjective: awake, alert pain controlled. Tolerating brace better since Hangar adjusted the chin rest. Objective: Vital Signs Temp Pulse Resp BP Pulse Ox 36.4 C 65 14 101/67 96 11/14/16 07:47 11/14/16 07:47 11/14/16 07:47 11/14/16 07:47 11/14/16 07:47 11/13/16 11/14/16 11/15/16 05:59 05:59 05:59 Intake Total 500 1000 Balance 500 1000 ICD10 Worksheet Patient Problems: Problems Problem Status Onset Fracture of clavicle, left, closed Acute Right clavicle fracture Acute Unspecified occipital condyle fracture, initial encounter for closed fracture Acute
[2016-11-14 16:23] VITALS: BP 114/60; PULSE 79; RESP 18; TEMP 98.1
--- NOTE | 2016-11-14 18:19 | TRAUMAPN ---
Assessment/Plan: 11/13/2016 Assessment: Pain control better. Has successfully learned to transition to Karlee collar for showering Area of pressure on chin from collar has been adjusted Eating well Plan: Support group to arrive tomorrow at 6:30 - plan to consider discharge at that time if appropriate. 11/14/2016 assessment: doing well. Scans/x-rays reviewed with patient Plan: given permission to not use sling discharge Subjective: "do I have to waer this sling all the time? Objective: Vital Signs Temp Pulse Resp BP Pulse Ox 36.7 C 79 18 114/60 96 11/14/16 16:21 11/14/16 16:21 11/14/16 16:21 11/14/16 16:21 11/14/16 16:21 11/13/16 11/14/16 11/15/16 05:59 05:59 05:59 Intake Total 500 1000 Balance 500 1000 - C-Spine Clearance Cervical Spine Cleared: No Physical Exam - Physical Exam General Appearance: WD/WN, alert, no apparent distress Neck: other (in bryon collar ( pilly collar for showers)) Respiratory: chest non-tender, lungs clear, normal breath sounds Cardiac/Chest: regular rate, rhythm Abdomen: normal bowel sounds, non-tender, soft Pelvic Exam: deferred Rectal: deferred Back: Normal inspection Skin: normal color, warm/dry Lymphatic: no adenopathy Extremities: normal range of motion, non-tender, normal inspection Neuro/Psych: no motor/sensory deficits, alert, normal mood/affect, oriented x 3 Time Spent w/Patient (minutes): 15
--- NOTE | 2016-11-15 07:21 | GDS ---
[f rep st] DISCHARGE SUMMARY DISCHARGE DIAGNOSES: 1. Fracture, left clavicle. 2. Fracture, right clavicle. 3. Right occipital condyle fracture with ligamentous injury. PROCEDURES: None. DISCHARGE CONDITION: Improved. DISPOSITION: Home. There are no restrictions on diet, but I suggest that she avoid constipating foods such as bananas, rice, applesauce, and cheese. Diet is regular texture. MEDICATION AT DISCHARGE: Include Tillson 5/325, 1-2 p.o. q.4h p.r.n. pain. Zofran ODT 4 mg sublingual q.4 p.r.n. nausea, MiraLAX 17 g p.o. daily as needed. She will continue her home medications of trazodone 25 mg p.o. at bedtime, Synthroid 200 mcg daily, Pristiq 100 mg daily, and Qlaira 26/2, 1 tablet p.o. at bedtime. ACTIVITY: She is to wear a Ange brace at all times, except for showering, when she may change to a Karlee collar. She is able to take her brace off at bedside while sitting up. She is to lift no more than 10 pounds. She is to follow up with Dr. Oviedo from neurosurgery in 4 weeks. She will get a cervical x-ray, PA and lateral at that time. She is to call [facility] with any questions. If there is any weakness in the arms or legs, loss of bowel or bladder control, she is to go immediately to the emergency room. She is to use a sling on her left arm as needed. She will also follow up with Dr. Mei Irvin in 10 days for left clavicle. She will follow up with Dr. Brennan as needed. HOSPITAL COURSE: The patient was admitted after falling approximately 10 feet while hiking. The above-mentioned injuries were discovered. She has done well since that time. Her pain is controlled. Her nausea is controlled. She is stable for discharge. /[id number]/MODL MTDD
== END 2016-11-14 19:52 | disposition home or self-care (01) | DRG 87 ==
LOC: EDBD 15:24 → OBSVTOIN 19:22 → F3N 20:54
PROVIDERS: ADMIT Surgery; ATTEND Surgery
DX: S02.113A Unspecified occipital condyle fracture, initial encounter for closed fracture (principal); S42.032A Displaced fracture of lateral end of left clavicle, initial encounter for closed fracture; S42.034A Nondisplaced fracture of lateral end of right clavicle, initial encounter for closed fracture; Y93.01 Activity, walking, marching and hiking; Y92.828 Other wilderness area as the place of occurrence of the external cause; W01.0XXA Fall on same level from slipping, tripping and stumbling without subsequent striking against object, initial encounter; R40.2410 Glasgow coma scale score 13-15, unspecified time; E03.9 Hypothyroidism, unspecified; Z87.442 Personal history of urinary calculi; Z98.84 Bariatric surgery status
CPT/HCPCS: 92523-GN; 96374; 97116-GP; 97162-GP; 97165-GO; 97530-GP; 97535-GO; A4565; J1170; J1650; J2405

== ENCOUNTER → 2016-12-21 | Outpatient (CLI) | payer OTHER | LOC: FIMAGING 11:41 | PROVIDERS: ATTEND Physician Assistant Surgical | DX: S02.113D Unspecified occipital condyle fracture, subsequent encounter for fracture with routine healing (principal); R93.7 Abnormal findings on diagnostic imaging of other parts of musculoskeletal system ==

== ENCOUNTER → 2017-02-01 | Outpatient (CLI) | payer OTHER | LOC: FIMAGING 12:20 | PROVIDERS: ATTEND Physician Assistant Surgical | DX: S02.113D Unspecified occipital condyle fracture, subsequent encounter for fracture with routine healing (principal) ==